=== PATIENT | female | born 1985 | race Two or more races ===

== ENCOUNTER 2022-10-15 21:23 | Emergency (ER) | payer MEDICAID ==
[~2022-10-15] VITALS: Ht 154.9 cm; Wt 66.6 kg
[2022-10-15 21:29] VITALS: BP 109/38
[2022-10-16] MEDS ORDERED: traZODone 150mg tablet PO SCH (20:00)
== END 2022-10-16 03:08 | disposition home or self-care (01) ==
LOC: ER 21:25
DX: N64.4 Mastodynia (principal)
CPT/HCPCS: 99284